=== PATIENT | female | born 1955 | race Hispanic/Latino ===

== ENCOUNTER → 2017-04-03 | Outpatient (CLI) | payer MEDICARE | LOC: M LRY 14:46 | DX: R50.9 Fever, unspecified (principal); R05 Cough | CPT/HCPCS: 71046 ==

== ENCOUNTER → 2017-04-03 | Outpatient (REF) | payer MEDICARE | LOC: M SFHCLERA 14:07 | DX: R50.9 Fever, unspecified (principal) ==

== ENCOUNTER → 2017-04-03 | Outpatient (CLI) | payer MEDICARE | LOC: M LRY 14:41 | DX: R05 Cough (principal); R50.9 Fever, unspecified ==

== ENCOUNTER → 2017-04-21 | Outpatient (REF) | payer MEDICARE, OTHER ==
[2017-04-21 11:50] LABS: BASO % 0.5 % (0.0-1.0); EOS # 0.2 10^3/uL (0.0-0.50); EOS % 3.1 % (0.0-3.0); HEMATOCRIT 41.5 % (36.0-47.0); HEMOGLOBIN 13.8 g/dl (12.0-16.0); IMMATURE GRANULOCYTE % 0.1 % (0-3.0); LYMPH # 2.7 10^3/uL (1.5-4.5); LYMPH % 33.8 % (24.0-44.0); MEAN CORPUSCULAR HEMOGLOBIN 28.6 pg (27.0-33.0); MEAN CORPUSCULAR HGB CONC 33.3 g/dl (32.0-36.5); MEAN CORPUSCULAR VOLUME 85.9 fl (80.0-96.0); MONO # 0.6 10^3/uL (0.0-0.8); MONO % 7.9 % (0.0-5.0); NEUTROPHILS # 4.3 10^3/uL (1.8-7.7); NEUTROPHILS % 54.6 % (36.0-66.0); PLATELET COUNT, AUTOMATED 248 10^3/uL (150-450); RED BLOOD COUNT 4.83 10^6/uL (4.00-5.40); RED CELL DISTRIBUTION WIDTH 12.1 % (11.5-14.5); WHITE BLOOD COUNT 7.8 10^3/uL (4.0-10.0)
[2017-04-21 12:30] LABS: ALBUMIN 3.8 GM/DL (3.2-5.2); ALBUMIN/GLOBULIN RATIO 1.15 (1.00-1.93); ALKALINE PHOSPHATASE 62 U/L (45-117); ALT/SGPT 42 U/L (12-78); ANION GAP 8 MEQ/L (8-16); AST/SGOT 21 U/L (7-37); BILIRUBIN,TOTAL 1.1 MG/DL (0.2-1.0); BLOOD UREA NITROGEN 11 MG/DL (7-18); CALCIUM LEVEL 9.6 MG/DL (8.8-10.2); CARBON DIOXIDE LEVEL 28 MEQ/L (21-32); CHLORIDE LEVEL 105 MEQ/L (98-107); CHOLESTEROL LEVEL 215 MG/DL (<200); CHOLESTEROL RISK RATIO 5.657 (<5); CREATININE FOR GFR 0.74 MG/DL (0.55-1.30); FREE T4 1.33 NG/DL (0.76-1.46); GLOMERULAR FILTRATION RATE > 60.0 (>45); GLUCOSE, FASTING 119 MG/DL (70-100); HDL CHOLESTEROL 38 MG/DL (>40); LDL CHOLESTEROL 109.6 MG/DL (<100); NON-HDL-C 177 MG/DL; POTASSIUM SERUM 4.2 MEQ/L (3.5-5.1); SODIUM LEVEL 141 MEQ/L (136-145); TOTAL PROTEIN 7.1 GM/DL (6.4-8.2); TRIGLYCERIDES LEVEL 337 MG/DL (<150)
[2017-04-21 12:44] LABS: LITHIUM LEVEL 0.31 MEQ/L (0.60-1.20)
[2017-04-21 12:50] LABS: HEP C VIRUS AB SCREEN MEDICARE 0.1 INDEX (<0.8); HIV 1&2 SCREEN CENTAUR NEGATIVE (NEGATIVE)
[2017-04-21 16:21] LABS: MALB URINE SIEMENS 12.7 MG/L; MAU/CREAT RATIO 4.9 MCG/MG (0.0-30.0)
== END ==
LOC: M SFHCPLAZ 08:45
DX: Z00.00 Encounter for general adult medical examination without abnormal findings (principal); I10 Essential (primary) hypertension; E03.9 Hypothyroidism, unspecified; Z11.4 Encounter for screening for human immunodeficiency virus [HIV]; Z79.899 Other long term (current) drug therapy; Z13.220 Encounter for screening for lipoid disorders; Z11.59 Encounter for screening for other viral diseases
CPT/HCPCS: 80178

== ENCOUNTER → 2017-04-29 | Outpatient (CLI) | payer MEDICARE, OTHER | LOC: M WHC 13:18 | DX: Z12.31 Encounter for screening mammogram for malignant neoplasm of breast (principal) | CPT/HCPCS: 77067 ==

== ENCOUNTER → 2017-05-11 | Outpatient (CLI) | payer MEDICARE, BC, OTHER ==
[2017-05-11 11:01] LABS: LITHIUM LEVEL 0.33 MEQ/L (0.60-1.20)
== END ==
LOC: M LAB 09:56
DX: F31.89 Other bipolar disorder (principal)
CPT/HCPCS: 80178

== ENCOUNTER 2017-05-20 08:51 | Day surgery (SDC) | payer MEDICARE ==
[2017-05-20] MEDS ORDERED: PROPOFOL 200 MG/20 ML VIAL As Ordered (10:11)
[2017-05-20] MEDS ORDERED: LIDOCAINE 2% INJ 100 MG/5 ML SDV (FOR ANES.) As Ordered (10:11)
[2017-05-20] MEDS ORDERED: NS 1,000 ML IV (10:30)
== END 2017-05-20 12:25 | disposition home or self-care (01) ==
LOC: M OPP 08:51
DX: Z12.11 Encounter for screening for malignant neoplasm of colon (principal); D12.0 Benign neoplasm of cecum; K57.30 Diverticulosis of large intestine without perforation or abscess without bleeding; K64.4 Residual hemorrhoidal skin tags; K64.8 Other hemorrhoids; I10 Essential (primary) hypertension; E78.5 Hyperlipidemia, unspecified; E03.9 Hypothyroidism, unspecified; K21.9 Gastro-esophageal reflux disease without esophagitis; R12 Heartburn; F31.9 Bipolar disorder, unspecified; J45.909 Unspecified asthma, uncomplicated; Z87.891 Personal history of nicotine dependence; Z79.899 Other long term (current) drug therapy
CPT/HCPCS: 45385

== ENCOUNTER → 2017-06-19 | Outpatient (REF) | payer MEDICARE, OTHER ==
[2017-06-19 18:55] LABS: ALBUMIN 3.9 GM/DL (3.2-5.2); ALBUMIN/GLOBULIN RATIO 1.22 (1.00-1.93); ALKALINE PHOSPHATASE 62 U/L (45-117); ALT/SGPT 32 U/L (12-78); ANION GAP 7 MEQ/L (8-16); AST/SGOT 17 U/L (7-37); BILIRUBIN,TOTAL 1.2 MG/DL (0.2-1.0); BLOOD UREA NITROGEN 18 MG/DL (7-18); CALCIUM LEVEL 9.6 MG/DL (8.8-10.2); CARBON DIOXIDE LEVEL 29 MEQ/L (21-32); CHLORIDE LEVEL 106 MEQ/L (98-107); CHOLESTEROL LEVEL 145 MG/DL (<200); CHOLESTEROL RISK RATIO 4.142 (<5); CREATININE FOR GFR 0.77 MG/DL (0.55-1.30); GLOMERULAR FILTRATION RATE > 60.0 (>45); GLUCOSE, FASTING 125 MG/DL (70-100); HDL CHOLESTEROL 35 MG/DL (>40); LDL CHOLESTEROL 46.8 MG/DL (<100); NON-HDL-C 110 MG/DL; POTASSIUM SERUM 4.4 MEQ/L (3.5-5.1); SODIUM LEVEL 142 MEQ/L (136-145); TOTAL PROTEIN 7.1 GM/DL (6.4-8.2); TRIGLYCERIDES LEVEL 316 MG/DL (<150)
[2017-06-19 18:59] LABS: ESTIMATED AVERAGE GLUCOSE 140 MG/DL (60-110); HEMOGLOBIN A1c 6.5 %
== END ==
LOC: M SFHCLERA 09:20
DX: E78.5 Hyperlipidemia, unspecified (principal); R73.01 Impaired fasting glucose
CPT/HCPCS: 80053

== ENCOUNTER 2017-09-20 11:01 | Emergency (ER) | payer MEDICARE ==
[2017-09-20] MEDS ORDERED: KETOROLAC TROMETHAMINE 10 MG TAB PO (14:00)
[2017-09-20] MEDS: KETOROLAC 60 MG/2 ML VIAL (J1885) IM (14:45)
== END 2017-09-20 15:24 | disposition home or self-care (01) ==
LOC: M ED 11:01
DX: M17.11 Unilateral primary osteoarthritis, right knee (principal); M51.36 Other intervertebral disc degeneration, lumbar region; M89.8X8 Other specified disorders of bone, other site; E66.9 Obesity, unspecified; F31.89 Other bipolar disorder; I10 Essential (primary) hypertension; Z98.890 Other specified postprocedural states; Z87.891 Personal history of nicotine dependence; Z79.890 Hormone replacement therapy; Z79.899 Other long term (current) drug therapy
CPT/HCPCS: J1885

== ENCOUNTER → 2017-09-20 | Outpatient (CLI) | payer MEDICARE ==
[2017-09-20 12:10] LABS: LITHIUM LEVEL 0.54 MEQ/L (0.60-1.20)
== END ==
LOC: M LAB 10:34
DX: F31.89 Other bipolar disorder (principal)

== ENCOUNTER → 2017-10-08 | Outpatient (CLI) | payer MEDICARE | LOC: M RAD 13:16 | DX: M25.561 Pain in right knee (principal) | CPT/HCPCS: 73721 ==

== ENCOUNTER → 2017-11-11 | Outpatient (REF) | payer MEDICARE ==
[2017-11-11 14:59] LABS: ALBUMIN 3.5 GM/DL (3.2-5.2); ALBUMIN/GLOBULIN RATIO 1.06 (1.00-1.93); ALKALINE PHOSPHATASE 69 U/L (45-117); ALT/SGPT 36 U/L (12-78); ANION GAP 9 MEQ/L (8-16); AST/SGOT 17 U/L (7-37); BLOOD UREA NITROGEN 7 MG/DL (7-18); CALCIUM LEVEL 9.4 MG/DL (8.8-10.2); CARBON DIOXIDE LEVEL 25 MEQ/L (21-32); CHLORIDE LEVEL 110 MEQ/L (98-107); FREE T4 1.16 NG/DL (0.76-1.46); GLOMERULAR FILTRATION RATE > 60.0 (>45); GLUCOSE, FASTING 108 MG/DL (70-100); POTASSIUM SERUM 4.2 MEQ/L (3.5-5.1); SODIUM LEVEL 144 MEQ/L (136-145); TOTAL PROTEIN 6.8 GM/DL (6.4-8.2)
[2017-11-11 15:10] LABS: ESTIMATED AVERAGE GLUCOSE 128 MG/DL (60-110); HEMOGLOBIN A1c 6.1 %
== END ==
LOC: M SFHCPLAZ 08:46
DX: E11.42 Type 2 diabetes mellitus with diabetic polyneuropathy (principal); E03.9 Hypothyroidism, unspecified
CPT/HCPCS: 84443

== ENCOUNTER → 2017-11-12 | Outpatient (CLI) | payer MEDICARE | LOC: M LRY 10:40 | DX: R06.2 Wheezing (principal) | CPT/HCPCS: 71046; 94640 ==

== ENCOUNTER → 2017-11-26 | Outpatient (CLI) | payer MEDICARE ==
[2017-11-26 14:04] LABS: LITHIUM LEVEL 0.41 MEQ/L (0.60-1.20)
== END ==
LOC: M WHC 11:36
DX: F31.89 Other bipolar disorder (principal)
CPT/HCPCS: 80178

== ENCOUNTER → 2017-12-06 | Outpatient (CLI) | payer MEDICARE | LOC: M WHC 13:26 | DX: Z13.820 Encounter for screening for osteoporosis (principal) | CPT/HCPCS: 77080 ==

== ENCOUNTER → 2018-02-14 | Outpatient (REF) | payer MEDICARE, MEDICAID ==
[~2018-02-14] MED LIST: ACET30TAB PO; ALBU17IN2 INH; CLON1TAB8 PO; LEVO25TA5 PO; LITH300C PO; METF500T13 PO; METO75TA PO; MONT10TA2 PO; RANI300T PO; ROSU5TAB4 PO; TEMA30CA PO; VALS320T3 PO; VENTAER IN
[2018-02-14 13:34] LABS: HEMOGLOBIN A1c 5.8 %
== END ==
LOC: M SFHCPLAZ 08:47
PROVIDERS: ATTEND Physician Assistant
DX: E11.42 Type 2 diabetes mellitus with diabetic polyneuropathy (principal)

== ENCOUNTER 2018-03-30 06:47 | Day surgery (SDC) | payer MEDICARE, MEDICAID ==
[~2018-03-30] VITALS: Ht 160 cm; Wt 105.2 kg
[~2018-03-30 06:47] MED LIST changes: +ACETAMINOPHEN 325 MG TAB PO PRN
[2018-03-30] MEDS ORDERED: TRIAMCINOLONE PRES FR 40 MG/ML 1ML(TRIESENCE)(OR EYE ONLY)(J3300 PER 1MG) As Ordered ONE (06:50)
[2018-03-30] MEDS ORDERED: POVIDONE-IODINE 5% OPHTH PREP SOL 30ML As Ordered ONE (06:50)
[2018-03-30] MEDS ORDERED: LIDOCAINE 1% SDV 5 ML VIAL As Ordered ONE (06:50)
[2018-03-30] MEDS ORDERED: MOXIFLOXACIN IN BSS 0.25MG/0.25ML INTRACAMERAL INJ (OR EYE ONLY)(J2280) As Ordered ONE (06:51)
[2018-03-30] MEDS ORDERED: HEALON DUET PRO(HEALON 10MG/ML 0.55ML & HEALON ENDOCOAT 30MG/ML 0.85ML) As Ordered ONE (06:51)
[2018-03-30] MEDS ORDERED: LIDOCAINE 3.5 % 1ML OPHTH TOPICAL GEL OU ONE (07:00)
[2018-03-30] MEDS ORDERED: TROPICAMIDE 1% OPHTH SOLN 2ML OS ONE (07:00)
[2018-03-30] MEDS ORDERED: BSS with VANC/TOB/EPI for EYE CASES IR ONE (07:00)
[2018-03-30] MEDS ORDERED: CYCLOPENTOLATE 2% OPHTH SOLN 2ML BTL OS ONE (07:00)
[2018-03-30] MEDS ORDERED: PHENYLEPHRINE 2.5% OPHTH SOL 2ML OS ONE (07:00)
[2018-03-30] MEDS ORDERED: OFLOXACIN 0.3 % (OCUFLOX) OPTH SOL 5ML OS ONE (07:00)
[2018-03-30] MEDS ORDERED: PHENYLEPHRINE HCL 10 % OPHTH. SOL 5ML OS PRN (07:00)
[2018-03-30] MEDS ORDERED: fentaNYL 100 MCG/2 ML INJECTION (J3010) As Ordered ONE (07:03)
[2018-03-30] MEDS ORDERED: MIDAZOLAM INJ 2 MG/2 ML VIAL (J2250) As Ordered ONE (07:03)
[2018-03-30] MEDS ORDERED: AcetaZOLAMIDE 500 MG ER CAP PO ONE (09:00)
[2018-03-30] MEDS ORDERED: TRIMETHOBENZAMIDE 300 MG CAP PO PRN (09:00)
[2018-03-30 09:25] VITALS: BP 137/63
== END 2018-03-30 09:50 | disposition home or self-care (01) ==
LOC: M SDC 06:47
PROVIDERS: ATTEND Ophthalmology
DX: H25.12 Age-related nuclear cataract, left eye (principal); I10 Essential (primary) hypertension; E03.9 Hypothyroidism, unspecified; J45.40 Moderate persistent asthma, uncomplicated; E11.42 Type 2 diabetes mellitus with diabetic polyneuropathy; K21.9 Gastro-esophageal reflux disease without esophagitis; F31.9 Bipolar disorder, unspecified; R06.83 Snoring; Z79.899 Other long term (current) drug therapy; Z79.82 Long term (current) use of aspirin; Z98.51 Tubal ligation status; Z78.0 Asymptomatic menopausal state
CPT/HCPCS: 66984; J2250; J2280; J3010; J3300; V2632

== ENCOUNTER → 2018-04-01 | Outpatient (REF) | payer MEDICARE, MEDICAID ==
[~2018-04-01] MED LIST changes: -ACETAMINOPHEN 325 MG TAB PO PRN; +AMLO5TAB6 PO; +LOPR1TAB6 PO
[2018-04-01 13:18] LABS: FOLATE 23.2 NG/ML (>5.4)
== END ==
LOC: M SFHCPLAZ 11:15
PROVIDERS: ATTEND Physician Assistant
DX: R20.0 Anesthesia of skin (principal)
CPT/HCPCS: 36415; 82607; 82746; G0463

== ENCOUNTER 2018-04-04 08:52 | Emergency (ER) | payer MEDICARE, MEDICAID ==
[~2018-04-04] VITALS: Ht 162.6 cm; Wt 103.6 kg
[~2018-04-04 08:52] MED LIST changes: -AMLO5TAB6 PO; -LOPR1TAB6 PO
[2018-04-04] MEDS ORDERED: LOPR1TAB6 PO (09:14)
[2018-04-04] MEDS ORDERED: AMLO5TAB6 PO (09:16)
[2018-04-04] MEDS ORDERED: MORPHINE 2 MG/ML 1ML SYRINGE (J2270) IV PRN (09:30)
[2018-04-04] MEDS ORDERED: ONDANSETRON 4MG/2ML VIAL (J2405) IV ONE (09:30)
--- NOTE | 2018-04-04 09:54 | REP ---
CT Head without contrast HISTORY: Infarction COMPARISON: None There is no intraparenchymal hemorrhage, acute infarct, mass or midline shift. The ventricular system is normal in appearance. The cortical sulci are dilated consistent with minimal volume loss. There is no extra cerebral collection. There is no fracture. The visualized sinuses are clear. IMPRESSION: Minimal volume loss. Electronically Signed by Virgilio Ruffin MD 04/04/2018 09:45 A
[2018-04-04 09:55] LABS: BASO # 0.1 10^3/uL (0.0-0.2); BASO % 0.5 % (0.0-1.0); EOS # 0.2 10^3/uL (0.0-0.50); EOS % 1.4 % (0.0-3.0); HEMATOCRIT 45.6 % (36.0-47.0); HEMOGLOBIN 15.4 g/dl (12.0-15.5); LYMPH # 3.6 10^3/uL (1.5-4.5); LYMPH % 25.7 % (24.0-44.0); MEAN CORPUSCULAR HEMOGLOBIN 29.1 pg (27.0-33.0); MEAN CORPUSCULAR HGB CONC 33.8 g/dl (32.0-36.5); MEAN CORPUSCULAR VOLUME 86.2 fl (80.0-96.0); MONO # 1.1 10^3/uL (0.0-0.8); MONO % 7.6 % (0.0-5.0); NEUTROPHILS # 9.2 10^3/uL (1.8-7.7); NEUTROPHILS % 64.6 % (36.0-66.0); PLATELET COUNT, AUTOMATED 337 10^3/uL (150-450); RED BLOOD COUNT 5.29 10^6/uL (4.00-5.40); WHITE BLOOD COUNT 14.2 10^3/uL (4.0-10.0)
--- NOTE | 2018-04-04 09:56 | REP ---
Chest x-ray: Single view. History: Chest pain. Comparison study: November 12, 2017. Findings: EKG monitoring electrodes overlie the chest. Lungs are well inflated and clear. Pleural angles are sharp. Heart size is normal. Pulmonary vasculature is not increased. No significant bony abnormality is seen. Impression: Negative AP chest x-ray. Electronically Signed by Ammon Roque MD 04/04/2018 09:47 A
[2018-04-04 10:13] LABS: PARTIAL THROMBOPLASTIN TIME 30.4 SECONDS (25.4-37.6)
[2018-04-04 10:16] LABS: D-DIMER QUANT 350.22 ng/ml (<500)
[2018-04-04 10:17] LABS: INR 0.91; PROTHROMBIN TIME 12.3 SECONDS (12.1-14.4)
[2018-04-04 10:27] LABS: ALBUMIN 4.2 GM/DL (3.2-5.2); ALT/SGPT 30 U/L (12-78); BILIRUBIN,DIRECT 0.2 MG/DL (0.0-0.2); BILIRUBIN,TOTAL 1.2 MG/DL (0.2-1.0); BLOOD UREA NITROGEN 14 MG/DL (7-18); CALCIUM LEVEL 10.9 MG/DL (8.8-10.2); CARBON DIOXIDE LEVEL 29 MEQ/L (21-32); CHLORIDE LEVEL 104 MEQ/L (98-107); CPK CREATINE PHOSPHOKINASE 52 U/L (26-192); CREATININE FOR GFR 0.77 MG/DL (0.55-1.30); FREE T4 1.37 NG/DL (0.76-1.46); GLOMERULAR FILTRATION RATE > 60.0 (>45); GLUCOSE, FASTING 74 MG/DL (70-100); LIPASE 191 U/L (73-393); LITHIUM LEVEL 0.58 MEQ/L (0.60-1.20); MB/CK RELATIVE INDEX 2.12 (< OR =4); NT-PRO BNP 113 PG/ML (<125); POTASSIUM SERUM 4.4 MEQ/L (3.5-5.1); SODIUM LEVEL 140 MEQ/L (136-145); TOTAL PROTEIN 7.7 GM/DL (6.4-8.2); TROPONIN I < 0.02 NG/ML (< 0.10)
[2018-04-04] MEDS ORDERED: ISOVUE-370 76% 100ML VIAL (Q9967) As Ordered ONE (10:44)
--- NOTE | 2018-04-04 12:03 | REP ---
CT pulmonary angiogram: With IV contrast. History: Chest pain. Comparison studies: Comparison is made with today's chest x-ray. Contrast dose: 75 mL of Isovue [address] technique: Helical scanning is acquired and overlapping 1.5 mm and contiguous 3 mm axial images are reformatted. In addition, maximum intensity projection and multiplanar re-formation images are generated in sagittal and coronal imaging projections. CT pulmonary angiographic findings: There is good opacification of the pulmonary arterial tree. There is no evidence of filling defect or vessel cutoff in the pulmonary arterial tree. No evidence of pulmonary embolus. Thoracic aorta shows no evidence of aneurysm or dissection. No pleural or pericardial effusion is noted. No hilar or mediastinal mass or adenopathy is seen. Normal adrenal glands are noted. There is a cyst in the upper pole of the left kidney seen at the bottom edge of the imaging field of view. This measures at least 4.4 cm in diameter. It is incompletely seen. There is an accessory splenule. On lung window settings, there is a 8 mm noncalcified pulmonary nodule visible in the left lower lobe on page 44 of 87 in series 402 of today's study. There are two tiny 2-3 mm nodules in the right upper lobe on pages 23 and 28. No other pulmonary nodule is seen. There is a small area of linear discoid atelectasis in the lingula. Impression: No CT evidence of pulmonary embolus. There is an 8 mm noncalcified left lower lobe pulmonary nodule which merits further evaluation. Recommend 4 to [address] study. There is also some linear atelectasis or fibrosis in the lingula. A left renal cyst is partially seen. Electronically Signed by Ammon Roque MD 04/04/2018 01:55 P
[2018-04-04 12:30] VITALS: BP 146/70
--- NOTE | 2018-04-05 09:22 | ED PDOC ---
Post-Departure Follow-Up darek calderón faxed formal report of cta for fu Carina Moser MD Apr 05, 2018 09:22
--- NOTE | 2018-04-06 08:38 | ECGEPIP ---
Stationary ECG Study [facility] - ED Test Date: 2018-04-04 Pat Name: JERRELL WEBSTER Department: Room: - Gender: F [employer]: brinda : 1955 Requested By: Carina Vigil Order Number: [id number] Reading MD: Kiley Valdes Measurements Intervals [place] Rate: 76 P: 56 OR: 194 QRS: 24 QRSD: 103 T: 42 QT: 375 QTc: 424 Interpretive Statements SINUS RHYTHM LOW VOLTAGE LIMB NO PRIOR FOR COMPARISON Electronically Signed On 04-06-2018 8:37:47 EST by Kiley Valdes
== END 2018-04-04 12:38 | disposition home or self-care (01) ==
LOC: M ED 08:52
DX: R07.89 Other chest pain (principal); R51 Headache; R11.0 Nausea; I10 Essential (primary) hypertension; R06.02 Shortness of breath; E11.9 Type 2 diabetes mellitus without complications; E78.5 Hyperlipidemia, unspecified; J44.9 Chronic obstructive pulmonary disease, unspecified; E07.9 Disorder of thyroid, unspecified; Z79.899 Other long term (current) drug therapy; Z79.84 Long term (current) use of oral hypoglycemic drugs
CPT/HCPCS: 70450; 71045; 71275; 80048; 80076; 80178; 82550; 82553; 83690; 83880; 84439; 84443; 84484; 85025; 85379; 85610; 85730; 86850; 86900; 86901; 93005; 93041; 94760; 96374; 96375; 99285; J2270; J2405; Q9967

== ENCOUNTER → 2018-05-12 | Outpatient (REF) | payer MEDICARE, MEDICAID ==
[~2018-05-12] MED LIST changes: +AMLO5TAB6 PO; +BYST10TA2 PO; +LOPR1TAB6 PO; +PRED1SOL3 OD
[2018-05-12 12:24] LABS: HEMATOCRIT 39.9 % (36.0-47.0); MEAN CORPUSCULAR HEMOGLOBIN 28.7 pg (27.0-33.0); MEAN CORPUSCULAR HGB CONC 32.6 g/dl (32.0-36.5); MEAN CORPUSCULAR VOLUME 88.1 fl (80.0-96.0); PLATELET COUNT, AUTOMATED 255 10^3/uL (150-450); RED BLOOD COUNT 4.53 10^6/uL (4.00-5.40); WHITE BLOOD COUNT 9.3 10^3/uL (4.0-10.0)
[2018-05-12 12:54] LABS: FREE T4 1.32 NG/DL (0.76-1.46); THYROID STIMULATING HORMONE 1.04 uIU/ML (0.358-3.740)
[2018-05-12 13:50] LABS: HEMOGLOBIN A1c 5.6 %
== END ==
LOC: M SFHCPLAZ 09:57
PROVIDERS: ATTEND Physician Assistant
DX: R07.9 Chest pain, unspecified (principal); E03.9 Hypothyroidism, unspecified; E11.42 Type 2 diabetes mellitus with diabetic polyneuropathy

== ENCOUNTER 2018-05-15 11:07 | Emergency (ER) | payer MEDICARE, MEDICAID ==
[~2018-05-15] VITALS: Ht 162.6 cm; Wt 104.5 kg
[2018-05-15 11:07] VITALS: BP 185/77
[~2018-05-15 11:07] MED LIST changes: -BYST10TA2 PO; -PRED1SOL3 OD
[2018-05-15] MEDS ORDERED: BYST10TA2 PO (11:13)
[2018-05-15] MEDS ORDERED: TETRACAINE 0.5% OPHTH SOLN 4ML OU ONE (12:00)
[2018-05-15] MEDS ORDERED: FLUORESCEIN OPHTH 1 MG STRIP OU ONE (12:00)
[2018-05-15] MEDS ORDERED: PRED1SOL3 OD (13:21)
== END 2018-05-15 13:27 | disposition home or self-care (01) ==
LOC: M ED 11:07
DX: H20.011 Primary iridocyclitis, right eye (principal); E11.9 Type 2 diabetes mellitus without complications; I10 Essential (primary) hypertension; Z79.899 Other long term (current) drug therapy

== ENCOUNTER → 2018-05-19 | Outpatient (CLI) | payer MEDICARE, MEDICAID ==
[~2018-05-19] MED LIST changes: +BYST10TA2 PO; +PRED1SOL3 OD
--- NOTE | 2018-05-25 14:23 | SLEEPHOME ---
DATE OF PROCEDURE: 05/19/2018 ORDERING PROVIDER: Dr. Arriola Diagnostic home sleep testing was performed due to concern for the obstructive sleep apnea syndrome. For testing, a nocturnal T3 respiratory monitoring device was used. Continuous record was made of pulse, oxygen saturation, airflow, chest and abdominal strain. 10 hours and 59 minutes of data were reviewed. There were 7 hours and 45 minutes marked as time in bed. During the interval marked time in bed, there were 46 respiratory events identified of 10 seconds in duration or greater for respiratory event index of 5.9. The events were primarily obstructive. Baseline pulse rate was 60 beats per minute. Pulse rate ranged 49 to 92. Baseline saturation 89%. Lowest oxygen saturation 82%. Testing was performed in both the supine and nonsupine positions. IMPRESSION: Abnormal home sleep testing with repetitive respiratory events and oxygen desaturations to 82% with a respiratory event index of 5.9 is consistent with the obstructive sleep apnea syndrome. RECOMMENDATIONS: The patient should be encouraged to undergo formal sleep evaluation and in laboratory pressure titration.
== END ==
LOC: M SLEEP HO 11:07
PROVIDERS: ATTEND Internal Medicine Cardiovascular Disease
DX: R06.83 Snoring (principal)

== ENCOUNTER → 2018-05-31 | Outpatient (REF) | payer MEDICARE, MEDICAID ==
[~2018-05-31] MED LIST changes: +ACET-716 PO; -ACET30TAB PO
== END ==
LOC: M LABDRAW1 10:07
PROVIDERS: ATTEND Nurse Practitioner Psychiatric/Mental Health
DX: F31.89 Other bipolar disorder (principal)

== ENCOUNTER → 2018-06-03 | Outpatient (REF) ==
[2018-06-03 12:05] LABS: RUBELLA IgG QUALITATIVE IMMUNE (IMMUNE)
== END ==
LOC: M LAB 10:34
PROVIDERS: ATTEND Nurse Practitioner Adult Health
DX: Z02.89 Encounter for other administrative examinations (principal)

== ENCOUNTER → 2018-06-07 | Outpatient (REF) | payer MEDICARE, MEDICAID ==
[2018-06-07 13:50] LABS: BASO # 0.1 10^3/uL (0.0-0.2); BASO % 0.6 % (0.0-1.0); EOS # 0.3 10^3/uL (0.0-0.50); EOS % 2.8 % (0.0-3.0); HEMATOCRIT 42.1 % (36.0-47.0); HEMOGLOBIN 13.4 g/dl (12.0-15.5); LYMPH # 3.1 10^3/uL (1.5-4.5); LYMPH % 28.5 % (24.0-44.0); MEAN CORPUSCULAR HEMOGLOBIN 28.6 pg (27.0-33.0); MEAN CORPUSCULAR HGB CONC 31.8 g/dl (32.0-36.5); MONO # 0.7 10^3/uL (0.0-0.8); MONO % 6.6 % (0.0-5.0); NEUTROPHILS # 6.7 10^3/uL (1.8-7.7); PLATELET COUNT, AUTOMATED 282 10^3/uL (150-450); RED BLOOD COUNT 4.68 10^6/uL (4.00-5.40); WHITE BLOOD COUNT 10.9 10^3/uL (4.0-10.0)
[2018-06-07 14:07] LABS: ALBUMIN 3.7 GM/DL (3.2-5.2); ALT/SGPT 20 U/L (12-78); BILIRUBIN,TOTAL 0.9 MG/DL (0.2-1.0); BLOOD UREA NITROGEN 14 MG/DL (7-18); CALCIUM LEVEL 10.6 MG/DL (8.8-10.2); CARBON DIOXIDE LEVEL 29 MEQ/L (21-32); CHLORIDE LEVEL 106 MEQ/L (98-107); CREATININE FOR GFR 0.76 MG/DL (0.55-1.30); FERRITIN 97 NG/ML (8-252); GLOMERULAR FILTRATION RATE > 60.0 (>45); GLUCOSE, FASTING 88 MG/DL (70-100); POTASSIUM SERUM 4.7 MEQ/L (3.5-5.1); RHEUMATOID FACTOR QUANT 34.5 IU/ML (<15.0); SODIUM LEVEL 139 MEQ/L (136-145); THYROID STIMULATING HORMONE 0.901 uIU/ML (0.358-3.740); TOTAL 25(OH) VITAMIN D 25.8 NG/ML (30.0-100.0); TOTAL PROTEIN 6.7 GM/DL (6.4-8.2)
[2018-06-07 14:17] LABS: ERYTHROCYTE SEDIMENTATION RATE 10 mm/hr (0-30)
[2018-06-08 14:26] LABS: ANTINUCLEAR ANTIBODIES DIRECT Negative (Negative)
== END ==
LOC: M LABNEURO 12:55
PROVIDERS: ATTEND Psychiatry & Neurology Neurology
DX: R51 Headache (principal); G25.81 Restless legs syndrome

== ENCOUNTER 2018-08-24 11:33 | Emergency (ER) | payer MEDICARE, MEDICAID ==
[~2018-08-24] VITALS: Ht 162.6 cm; Wt 106.2 kg
[~2018-08-24 11:33] MED LIST changes: -ROSU5TAB4 PO; +ROSU5TAB5 PO
[2018-08-24] MEDS ORDERED: SYNT75TA PO (12:36)
[2018-08-24] MEDS ORDERED: METF10004 PO (12:36)
[2018-08-24 13:29] LABS: APPEARANCE, URINE CLEAR (CLEAR); BACTERIA, URINE AUTO 1+ (NEGATIVE); BILIRUBIN, URINE AUTO NEGATIVE (NEGATIVE); BLOOD, URINE BLOOD NEGATIVE (NEGATIVE); COLOR, URINE STRAW (YELLOW); GLUCOSE, URINE (UA) AUTO NEGATIVE (NEGATIVE); KETONE, URINE AUTO NEGATIVE (NEGATIVE); LEUKOCYTE ESTERASE, URINE AUTO NEGATIVE (NEGATIVE); NITRITE, URINE AUTO NEGATIVE (NEGATIVE); PROTEIN, URINE AUTO NEGATIVE (NEGATIVE); RBC, URINE AUTO 1 /HPF (0-3); SPECIFIC GRAVITY URINE AUTO 1.004 (1.002-1.035); SQUAMOUS EPITHELIAL CELL UR AU 2 /HPF (0-6); UROBILINOGEN, URINE AUTO 0.2 mg/dL (0.0-2.0); WBC, URINE AUTO 0 /HPF (0-3)
--- NOTE | 2018-08-24 13:43 | REP ---
CT LUMBAR SPINE WITHOUT CONTRAST: HISTORY: Injury. Vertebral tenderness. FINDINGS: Lumbar vertebral body heights are preserved. No fracture or collapse is seen. There is bilateral L5 spondylolysis without spondylolisthesis. This is not an acute traumatic finding. Pedicles and posterior elements are otherwise intact. There is mild discogenic spurring anteriorly at the L2-3. L3-4 and L4-5 disc levels. No lumbosacral spine fracture is appreciated. The upper sacrum appears intact. Paravertebral soft tissues are unremarkable. Vascular calcification is noted. No evidence of paraspinal or intraspinal hematoma is seen. No evidence of significant disc protrusion is appreciated. IMPRESSION: Bilateral L5 spondylolysis without spondylolisthesis. This is a chronic finding. No acute bony abnormality is appreciated. There are minimal degenerative disc changes. Electronically Signed by Ammon Roque MD 08/24/2018 04:34 P
[2018-08-24] MEDS ORDERED: FUROSEMIDE 20 MG TAB PO ONE (14:30)
[2018-08-24] MEDS ORDERED: FURO20TA2 PO (14:37)
[2018-08-24] MEDS ORDERED: K-TA10TA2 PO (14:37)
[2018-08-24 14:40] VITALS: BP 178/82
== END 2018-08-24 14:59 | disposition home or self-care (01) ==
LOC: M ED 11:33
DX: M54.5 Low back pain (principal); R60.9 Edema, unspecified; M43.06 Spondylolysis, lumbar region; I10 Essential (primary) hypertension; E78.5 Hyperlipidemia, unspecified; Z79.84 Long term (current) use of oral hypoglycemic drugs; Z79.899 Other long term (current) drug therapy

== ENCOUNTER → 2018-08-25 | Outpatient (REF) | payer MEDICARE, MEDICAID ==
[~2018-08-25] MED LIST changes: +FURO20TA2 PO; +K-TA10TA2 PO; +METF10004 PO; +ROSU5TAB4 PO; -ROSU5TAB5 PO; +SYNT75TA PO
[2018-08-25 13:08] LABS: CHOLESTEROL RISK RATIO 3.4 (<5)
[2018-08-25 13:24] LABS: HEMOGLOBIN A1c 5.7 %
[2018-08-25 13:30] LABS: CREATININE, URINE 44.1 MG/DL; MALB URINE SIEMENS 5.1 MG/L; MAU/CREAT RATIO 11.5 MCG/MG (0.0-30.0)
== END ==
LOC: M SFHCPLAZ 09:23
PROVIDERS: ATTEND Family Medicine
DX: E11.42 Type 2 diabetes mellitus with diabetic polyneuropathy (principal); E78.5 Hyperlipidemia, unspecified

== ENCOUNTER → 2018-08-29 | Outpatient (REF) | payer MEDICARE, MEDICAID ==
[2018-08-29 12:52] LABS: BLOOD UREA NITROGEN 16 MG/DL (7-18); CALCIUM LEVEL 9.7 MG/DL (8.8-10.2); CARBON DIOXIDE LEVEL 29 MEQ/L (21-32); CHLORIDE LEVEL 107 MEQ/L (98-107); CREATININE FOR GFR 0.73 MG/DL (0.55-1.30); GLOMERULAR FILTRATION RATE > 60.0 (>45); GLUCOSE, FASTING 103 MG/DL (70-100); NT-PRO BNP 123 PG/ML (<125); POTASSIUM SERUM 4.2 MEQ/L (3.5-5.1); SODIUM LEVEL 141 MEQ/L (136-145)
== END ==
LOC: M SFHCPLAZ 09:32
PROVIDERS: ATTEND Family Medicine
DX: R60.0 Localized edema (principal)

== ENCOUNTER → 2018-09-20 | Outpatient (REF) | payer MEDICARE, MEDICAID ==
[~2018-09-20] MED LIST changes: -ROSU5TAB4 PO; +ROSU5TAB5 PO
== END ==
LOC: M LABDRAW1 10:36
PROVIDERS: ATTEND Nurse Practitioner Psychiatric/Mental Health
DX: F31.89 Other bipolar disorder (principal); Z79.899 Other long term (current) drug therapy

== ENCOUNTER → 2018-10-03 | Outpatient (CLI) | payer MEDICARE, MEDICAID ==
--- NOTE | 2018-10-04 08:41 | REP ---
Clinical: Follow-up pulmonary nodule. Comparison: 04/24/2018. Technique: Axial noncontrast images from the thoracic inlet to the upper abdomen with coronal and sagittal re-formations. Findings: The previously identified 8 mm noncalcified nodule in the left lower lobe remains stable (image 51). A 4 mm noncalcified nodule deeper in the left lower lobe (image 62) and 3 mm nodule (image 71) may have been obscured by atelectasis on prior examination. No further acute consolidation, significant nodule or mass lesion. No effusion. No pneumothorax. Tracheobronchial tree is patent. No significant adenopathy. The mediastinum demonstrates relatively normal thoracic aorta, pulmonary vasculature and heart/pericardium. Limited upper abdomen demonstrates normal appearance to the visualized bilateral adrenal glands, evidence of prior cholecystectomy, and incompletely identified left renal cyst measuring up to approximately 4.6 cm. Impression: 1. Previously identified 8 mm nodule in the left lower lobe remains stable. Two smaller noncalcified nodules in the left lower lobe are identified on current examination and in retrospect were likely obscured by atelectasis. 9 - 12 month follow-up examination may be warranted for further investigation. 2. No further acute mediastinal or pleuroparenchymal process. 3. Left renal cyst incompletely evaluated. Electronically Signed by Darius Cr MD 10/04/2018 08:32 A
== END ==
LOC: M RAD 10:43
PROVIDERS: ATTEND Family Medicine
DX: R91.8 Other nonspecific abnormal finding of lung field (principal); N28.1 Cyst of kidney, acquired

== ENCOUNTER → 2018-10-18 | Outpatient (CLI) | payer MEDICARE, MEDICAID ==
[~2018-10-18] MED LIST changes: -ALBU17IN2 INH; +PROV108A INH
[2018-10-18 12:15] LABS: BLOOD UREA NITROGEN 12 MG/DL (7-18); CALCIUM LEVEL 9.7 MG/DL (8.8-10.2); CARBON DIOXIDE LEVEL 28 MEQ/L (21-32); CHLORIDE LEVEL 109 MEQ/L (98-107); CREATININE FOR GFR 0.73 MG/DL (0.55-1.30); GLOMERULAR FILTRATION RATE > 60.0 (>45); GLUCOSE, FASTING 103 MG/DL (70-100); POTASSIUM SERUM 4.2 MEQ/L (3.5-5.1); SODIUM LEVEL 141 MEQ/L (136-145); TROPONIN I < 0.02 NG/ML (< 0.10)
[2018-10-18 12:19] LABS: CREATININE, URINE 42.2 MG/DL; MALB URINE SIEMENS < 5.0 MG/L; MAU/CREAT RATIO 11.8 MCG/MG (0.0-30.0)
[2018-10-18 12:19] LABS: CORTISOL AM 6.8 UG/DL (4.3-22.4)
[2018-10-22 00:06] LABS: CREATININE,RANDOM URINE 45.9 mg/dL (Not Estab.); URINE METANEPHR/CREAT RATIO 0.4 (0.0-1.0)
== END ==
LOC: M LAB 10:54
PROVIDERS: ATTEND Family Medicine
DX: I16.0 Hypertensive urgency (principal)
CPT/HCPCS: 36415; 80048; 82043; 82533; 83835; 84484; G0463

== ENCOUNTER → 2018-10-18 | Outpatient (REF) | payer MEDICARE, MEDICAID ==
[~2018-10-18] MED LIST changes: +ALBU17IN2 INH; -PROV108A INH
== END ==
LOC: M SFHCPLAZ 10:16
PROVIDERS: ATTEND Family Medicine
DX: I16.0 Hypertensive urgency (principal); Z53.8 Procedure and treatment not carried out for other reasons

== ENCOUNTER → 2018-10-21 | Outpatient (CLI) | payer MEDICARE, MEDICAID ==
[~2018-10-21] MED LIST changes: -ALBU17IN2 INH; +ONDA4TAB6 PO; +PROV108A INH
--- NOTE | 2018-10-21 09:13 | REP ---
Renal vascular ultrasound: Right Kidney: Extraparenchymal renal artery. Peak renal artery flow velocity the 132 cm/ sec Peak aortic velocity: 120 cm/sec Renal/aortic ratio: 1.1 Intraparenchymal renal arteries. Resistive index: upper pole 0.75 mid pole at 0.78 lower pole 0.77 Acceleration time: upper pole 0.036 mid pole 0.046 lower pole 0.042 Left kidney: Extraparenchymal renal artery: Peak renal artery flow velocity: 136 cm/sec. Peak aortic velocity: 120 cm/sec Renal/aortic ratio: 1.13 Intraparenchymal renal arteries: Resistive index: Upper pole 0.77 mid pole 0.7 a lower pole 0.74 Acceleration time: Upper pole 0.05 mid pole 0.054 lower pole 0.056 Impression: No evidence of renal artery stenosis by Doppler ultrasound. Bilateral renal ultrasound: Studies performed for hypertension and difficulty urinating. The kidneys are normal size. The right kidney measures 12.1 x 5.5 record 0.6 cm per Left kidney measures 12.0 by 6 x 1 x 5.7 cm. Renal cortical echogenicity is normal bilaterally. There is no hydronephrosis, calculus or solid mass on the right on the left. There are three right ovarian simple cysts as follows: Upper pole 6 mm. Mid pole 12 mm. Mid pole 4 mm. Left kidney: Upper pole 5.9 cm. Upper pole 9 mm. Lower pole 6 mm. Bladder: With color Doppler assessment there are bilateral ureteral jets into the bladder. Impression: There are bilateral renal cortical simple cysts. There are no solid renal masses. There are no calcifications. There is no hydronephrosis. The kidneys are normal size. Electronically Signed by Aroldo Dwyer MD 10/21/2018 09:04 A
== END ==
LOC: M RAD 07:24
PROVIDERS: ATTEND Family Medicine
DX: I16.0 Hypertensive urgency (principal)

== ENCOUNTER 2018-10-26 11:17 | Outpatient (RCR) | payer MEDICARE, MEDICAID ==
[~2018-10-26 11:17] MED LIST changes: +ALBU17IN2 INH; -ONDA4TAB6 PO; -PROV108A INH
== END 2018-10-29 ==
LOC: M PT 11:17
PROVIDERS: ATTEND Family Medicine
DX: Z51.89 Encounter for other specified aftercare (principal); M54.2 Cervicalgia

== ENCOUNTER → 2018-10-27 | Outpatient (REF) | payer MEDICARE, MEDICAID ==
[~2018-10-27] MED LIST changes: -ALBU17IN2 INH; +PROV108A INH
[2018-10-27 17:26] LABS: BLOOD UREA NITROGEN 14 MG/DL (7-18); CALCIUM LEVEL 9.4 MG/DL (8.8-10.2); CARBON DIOXIDE LEVEL 30 MEQ/L (21-32); CHLORIDE LEVEL 110 MEQ/L (98-107); CREATININE FOR GFR 0.72 MG/DL (0.55-1.30); GLOMERULAR FILTRATION RATE > 60.0 (>45); GLUCOSE, FASTING 107 MG/DL (70-100); POTASSIUM SERUM 4.5 MEQ/L (3.5-5.1); SODIUM LEVEL 144 MEQ/L (136-145)
== END ==
LOC: M SFHCPLAZ 15:30
PROVIDERS: ATTEND Family Medicine
DX: I10 Essential (primary) hypertension (principal)
CPT/HCPCS: 36415; 80048; G0463

== ENCOUNTER 2018-11-25 15:08 | Emergency (ER) | payer MEDICARE, MEDICAID ==
[~2018-11-25] VITALS: Ht 162.6 cm; Wt 107.3 kg
[2018-11-25 15:57] LABS: BASO # 0.1 10^3/uL (0.0-0.2); BASO % 0.5 % (0.0-1.0); EOS # 0.4 10^3/uL (0.0-0.5); EOS % 3.7 % (0.0-3.0); HEMATOCRIT 38.9 % (36.0-47.0); HEMOGLOBIN 12.8 g/dl (12.0-15.5); LYMPH # 2.3 10^3/uL (1.5-5.0); LYMPH % 23.6 % (24.0-44.0); MEAN CORPUSCULAR HEMOGLOBIN 29.8 pg (27.0-33.0); MEAN CORPUSCULAR HGB CONC 32.9 g/dl (32.0-36.5); MEAN CORPUSCULAR VOLUME 90.5 fl (80.0-96.0); MONO # 0.9 10^3/uL (0.0-0.8); MONO % 8.8 % (0.0-5.0); NEUTROPHILS # 6.2 10^3/uL (1.5-8.5); PLATELET COUNT, AUTOMATED 246 10^3/uL (150-450); WHITE BLOOD COUNT 9.9 10^3/uL (4.0-10.0)
[2018-11-25 16:20] LABS: ALBUMIN 3.6 GM/DL (3.2-5.2); BILIRUBIN,DIRECT 0.2 MG/DL (0.0-0.2); BILIRUBIN,TOTAL 0.9 MG/DL (0.2-1.0); CALCIUM LEVEL 9.6 MG/DL (8.8-10.2); CREATININE FOR GFR 1.04 MG/DL (0.55-1.30); GLOMERULAR FILTRATION RATE 56.8 (>45); POTASSIUM SERUM 4.4 MEQ/L (3.5-5.1); TOTAL PROTEIN 6.8 GM/DL (6.4-8.2)
[2018-11-25] MEDS ORDERED: ISOVUE-370 76% 100ML VIAL (Q9967) As Ordered ONE (17:42)
[2018-11-25] MEDS ORDERED: NS 1,000 ML IV ONE (17:45)
[2018-11-25] MEDS ORDERED: ONDANSETRON 4MG/2ML VIAL (J2405) IV ONE (17:45)
--- NOTE | 2018-11-25 18:56 | REPVR ---
PROCEDURE INFORMATION: Exam: CT Abdomen and Pelvis With Contrast Exam date and time: 11/25/2018 5:35 PM Clinical history: 63 years old, female; Abdominal pain; Additional info: Ruq pain/diarrhea TECHNIQUE: Imaging protocol: Computed tomography of the abdomen and pelvis with intravenous contrast. Radiation optimization: All CT scans at this facility use at least one of these dose optimization techniques: automated exposure control; mA and/or kV adjustment per patient size (includes targeted exams where dose is matched to clinical indication); or iterative reconstruction. Contrast material: ISOVUE 370; Contrast volume: 100 ml; Contrast route: IV; COMPARISON: Portions of RENAL US 10/21/2018 7:30 AM FINDINGS: Pleural space: Small right pleural effusion with adjacent atelectasis and/or infiltrate. Liver: Diffusely hypodense liver consistent with hepatic steatosis. Gallbladder and bile ducts: Status post cholecystectomy. Pancreas: Normal. No ductal dilation. Spleen: Normal. No splenomegaly. Adrenals: Normal. No mass. Kidneys and ureters: Left renal 5.0 cm cyst. Right renal 0.8 cm cyst. Right renal scarring. No hydronephrosis. No mass. Stomach and bowel: Colonic diverticulosis without evidence of diverticulitis. There is thickening of the quinonez of loops of ileum in the left upper abdomen. No obstruction. Appendix: No evidence of appendicitis. Intraperitoneal space: No free air. No significant fluid collection. Vasculature: No abdominal aortic aneurysm. Lymph nodes: No enlarged lymph nodes. Bladder: Unremarkable. Reproductive: Lower uterine segment mass measuring approximately 5.4 cm in diameter. Bones/joints: Chronic appearing bilateral L5 spondylosis. No acute fracture or dislocation. Degenerative changes in the spine. Soft tissues: Unremarkable. IMPRESSION: 1. Findings consistent with infectious or inflammatory ileitis. 2. Small right pleural effusion with adjacent atelectasis and/or infiltrate. 3. Indeterminate lower uterine segment mass. Consider nonemergent ultrasound if not worked up in the past. 4. Nonacute/incidental findings above. COMMENT: Consistent with the [employer]'s Incidental Findings Committee Report (J Am Manav Radiol 2010): Unless the patient's specific circumstances suggest otherwise, any liver lesion 0.5 cm or less, any cystic kidney lesion less than 1.0 cm, and/or any adrenal lesion 1.0 cm or less not otherwise characterized in this report as possessing suspicious or indeterminate imaging features is/are highly likely to be benign and do not require follow-up imaging or biopsy. Electronically signed by: Jeff Wallace On 11/25/2018 18:56:20 PM
[2018-11-25] MEDS ORDERED: ONDA4TAB6 PO (19:36)
[2018-11-25 19:53] VITALS: BP 169/85
--- NOTE | 2018-11-29 12:50 | ED PDOC ---
Post-Departure Follow-Up dr amber hall faxed formal report of ct abd/p for fu Carina Moser MD Nov 29, 2018 12:50
== END 2018-11-25 19:55 | disposition home or self-care (01) ==
LOC: M ED 15:08
DX: K52.9 Noninfective gastroenteritis and colitis, unspecified (principal); N85.8 Other specified noninflammatory disorders of uterus; E11.9 Type 2 diabetes mellitus without complications; I10 Essential (primary) hypertension; J45.909 Unspecified asthma, uncomplicated; J44.9 Chronic obstructive pulmonary disease, unspecified; E78.5 Hyperlipidemia, unspecified; E03.9 Hypothyroidism, unspecified; K21.9 Gastro-esophageal reflux disease without esophagitis; I67.1 Cerebral aneurysm, nonruptured; G47.33 Obstructive sleep apnea (adult) (pediatric); Z79.899 Other long term (current) drug therapy; Z79.84 Long term (current) use of oral hypoglycemic drugs; Z79.890 Hormone replacement therapy
CPT/HCPCS: 74177; 80048; 80076; 81001; 83690; 85025; 96374; 99284; J2405; Q9967

== ENCOUNTER → 2018-11-29 | Outpatient (REF) | payer MEDICARE, MEDICAID ==
[~2018-11-29] MED LIST changes: +ONDA4TAB6 PO
== END ==
LOC: M LAB REF 12:02
PROVIDERS: ATTEND Emergency Medicine
DX: K52.9 Noninfective gastroenteritis and colitis, unspecified (principal)

== ENCOUNTER → 2018-12-07 | Outpatient (CLI) | payer MEDICARE, MEDICAID ==
--- NOTE | 2018-12-07 16:43 | REP ---
Pelvic ultrasound with endovaginal and Doppler ultrasound assessment for palpable lump: The uterus is anteverted and normal size measuring 7.3 x 3.6 x 3.9 cm. The endometrium is not thickened measuring 5.1 mm. There is an exophytic heterogeneous soft tissue mass arising from the lower uterine segment on the the right measuring 5.0 x 4.2 x 4.5 cm. With Doppler assessment there is low resistance flow within this mass. This may represent an exophytic fibroid, however the low-resistance flow suggests that may be a neoplasm. There is a fibroid in the uterine fundus anteriorly measuring 1.3 x 1.2 x 0.9 cm. Right ovary: The right ovary is normal size measuring 2.1 x 1.7 x 1.5 cm. There is no dominant mass or cyst. Venous flow is identified with Doppler assessment. Visualization is difficult because of bowel gas. Left ovary: Left ovary could not be visualized. Impression: There is a nonspecific, mass or right lateral margin of the lower uterine segment and cervix as described. This is nonspecific and could represent an exophytic fibroid or neoplasm. With Doppler assessment there is low resistance flow. There is a fibroid in the uterine one this anteriorly as described. The right ovary is unremarkable. The left ovary could not be visualized. Electronically Signed by Aroldo Dwyer MD 12/07/2018 04:34 P
== END ==
LOC: M RAD 15:14
PROVIDERS: ATTEND Family Medicine
DX: N85.8 Other specified noninflammatory disorders of uterus (principal); D25.9 Leiomyoma of uterus, unspecified

== ENCOUNTER → 2019-03-22 | Outpatient (REF) | payer MEDICARE, MEDICAID ==
[~2019-03-22] MED LIST changes: -MONT10TA2 PO; +MONT10TA4 PO
[2019-03-22 12:19] LABS: CALCIUM LEVEL 10.6 MG/DL (8.8-10.2); CHOLESTEROL RISK RATIO 3.104 (<5); CREATININE FOR GFR 1.04 MG/DL (0.55-1.30); FREE T4 1.19 NG/DL (0.76-1.46); GLOMERULAR FILTRATION RATE 56.8 (>45); POTASSIUM SERUM 4.7 MEQ/L (3.5-5.1); THYROID STIMULATING HORMONE 0.59 uIU/ML (0.358-3.740)
[2019-03-22 12:28] LABS: MALB URINE SIEMENS 28.5 MG/L; MAU/CREAT RATIO 16.1 MCG/MG (0.0-30.0)
[2019-03-22 12:41] LABS: HEMOGLOBIN A1c 5.9 %
== END ==
LOC: M SFHCPLAZ 09:35
PROVIDERS: ATTEND Family Medicine
DX: E11.42 Type 2 diabetes mellitus with diabetic polyneuropathy (principal); I10 Essential (primary) hypertension; E03.9 Hypothyroidism, unspecified
CPT/HCPCS: 36415; 80048; 80061; 82043; 83036; 84439; 84443; G0463

== ENCOUNTER → 2019-03-24 | Outpatient (CLI) | payer MEDICARE, MEDICAID ==
[~2019-03-24] MED LIST changes: +MONT10TA2 PO; -MONT10TA4 PO
[2019-03-24 18:01] LABS: BASO % 0.3 % (0.0-1.0); EOS # 0.3 10^3/uL (0.0-0.5); EOS % 2.3 % (0.0-3.0); HEMATOCRIT 40.7 % (36.0-47.0); LYMPH # 3.6 10^3/uL (1.5-5.0); LYMPH % 29.1 % (24.0-44.0); MEAN CORPUSCULAR HEMOGLOBIN 30.2 pg (27.0-33.0); MEAN CORPUSCULAR HGB CONC 31.9 g/dl (32.0-36.5); MEAN CORPUSCULAR VOLUME 94.7 fl (80.0-96.0); MONO # 0.9 10^3/uL (0.0-0.8); MONO % 7.3 % (0.0-5.0); NEUTROPHILS # 7.6 10^3/uL (1.5-8.5); NEUTROPHILS % 60.6 % (36.0-66.0); PLATELET COUNT, AUTOMATED 264 10^3/uL (150-450); WHITE BLOOD COUNT 12.5 10^3/uL (4.0-10.0)
[2019-03-24 18:11] LABS: ALBUMIN 3.7 GM/DL (3.2-5.2); ALT/SGPT 31 U/L (12-78); BILIRUBIN,TOTAL 0.8 MG/DL (0.2-1.0); BLOOD UREA NITROGEN 12 MG/DL (7-18); CALCIUM LEVEL 9.5 MG/DL (8.8-10.2); CARBON DIOXIDE LEVEL 25 MEQ/L (21-32); CHLORIDE LEVEL 110 MEQ/L (98-107); CREATININE FOR GFR 0.88 MG/DL (0.55-1.30); GLOMERULAR FILTRATION RATE > 60.0 (>45); GLUCOSE, FASTING 77 MG/DL (70-100); POTASSIUM SERUM 4.2 MEQ/L (3.5-5.1); SODIUM LEVEL 142 MEQ/L (136-145); TOTAL PROTEIN 6.6 GM/DL (6.4-8.2)
[2019-03-24 18:16] LABS: TOTAL 25(OH) VITAMIN D 24.1 NG/ML (30.0-100.0)
[2019-03-24 18:17] LABS: PTH INTACT 115.4 PG/ML (18.5-88.0)
== END ==
LOC: M PLALAB 14:19
PROVIDERS: ATTEND Student in an Organized Health Care Education/Training Program
DX: E83.51 Hypocalcemia (principal)

== ENCOUNTER → 2019-07-13 | Outpatient (CLI) | payer MEDICARE, MEDICAID ==
[~2019-07-13] MED LIST changes: -MONT10TA2 PO; +MONT10TA4 PO
[2019-07-13 11:01] LABS: BASO % 0.5 % (0.0-1.0); EOS # 0.3 10^3/uL (0.0-0.5); EOS % 3.5 % (0.0-3.0); HEMATOCRIT 40.8 % (36.0-47.0); HEMOGLOBIN 13.2 g/dl (12.0-15.5); LYMPH # 2.7 10^3/uL (1.5-5.0); LYMPH % 31.7 % (24.0-44.0); MEAN CORPUSCULAR HEMOGLOBIN 28.8 pg (27.0-33.0); MEAN CORPUSCULAR HGB CONC 32.4 g/dl (32.0-36.5); MEAN CORPUSCULAR VOLUME 89.1 fl (80.0-96.0); MONO # 0.6 10^3/uL (0.0-0.8); MONO % 7.1 % (0.0-5.0); NEUTROPHILS # 4.9 10^3/uL (1.5-8.5); NEUTROPHILS % 56.9 % (36.0-66.0); PLATELET COUNT, AUTOMATED 229 10^3/uL (150-450); RED BLOOD COUNT 4.58 10^6/uL (4.00-5.40); WHITE BLOOD COUNT 8.6 10^3/uL (4.0-10.0)
[2019-07-13 11:20] LABS: HEMOGLOBIN A1c 5.9 %
[2019-07-13 13:21] LABS: ALBUMIN 3.6 GM/DL (3.2-5.2); ALT/SGPT 34 U/L (12-78); BILIRUBIN,TOTAL 1.8 MG/DL (0.2-1.0); BLOOD UREA NITROGEN 15 MG/DL (7-18); CALCIUM LEVEL 9.5 MG/DL (8.8-10.2); CARBON DIOXIDE LEVEL 27 MEQ/L (21-32); CHLORIDE LEVEL 107 MEQ/L (98-107); CHOLESTEROL LEVEL 131 MG/DL (<200); CHOLESTEROL RISK RATIO 3.447 (<5); CREATININE FOR GFR 0.84 MG/DL (0.55-1.30); FREE T4 1.31 NG/DL (0.76-1.46); GLOMERULAR FILTRATION RATE > 60.0 (>45); GLUCOSE, FASTING 112 MG/DL (70-100); HDL CHOLESTEROL 38 MG/DL (>40); LDL CHOLESTEROL 33 MG/DL (<100); NON-HDL-C 93 MG/DL; POTASSIUM SERUM 4.3 MEQ/L (3.5-5.1); SODIUM LEVEL 140 MEQ/L (136-145); TOTAL PROTEIN 6.8 GM/DL (6.4-8.2); TRIGLYCERIDES LEVEL 300 MG/DL (<150)
== END ==
LOC: M LAB 10:41
PROVIDERS: ATTEND Nurse Practitioner Psychiatric/Mental Health
DX: F31.89 Other bipolar disorder (principal); Z79.899 Other long term (current) drug therapy

== ENCOUNTER → 2019-07-14 | Outpatient (REF) | payer MEDICARE, MEDICAID | LOC: M SFHCPLAZ 14:55 | DX: R17 Unspecified jaundice (principal) ==

== ENCOUNTER → 2019-09-13 | Outpatient (CLI) | payer MEDICARE, MEDICAID ==
[~2019-09-13] MED LIST changes: +AMLO1TAB24 PO; -AMLO5TAB6 PO
--- NOTE | 2019-09-13 16:03 | REPVR ---
PROCEDURE INFORMATION: Exam: MR Angiogram Head Without Contrast, Arteries Exam date and time: 09/13/2019 10:14 AM Age: 64 years old Clinical indication: Condition or disease; Aneurysm, cerebral TECHNIQUE: Imaging protocol: MR angiogram head without contrast. Exam focused on the arteries. 3D rendering: MIP and/or 3D reconstructed images were created by the technologist. COMPARISON: CT Head without contrast 04/04/2018 9:24 AM FINDINGS: Anterior cerebral arteries: Intracranial segment is patent with no significant stenosis. No aneurysm. Right internal carotid artery: Posterior right suprasellar internal carotid artery aneurysm in the expected location of the posterior communicating artery infundibulum measuring 3.6 x 2.3 x 1.7 mm (series 204, image 1, frame 11; series 207, image 1, frame 5). The posterior communicating artery is not, however, identified (likely absent, normal variant), making this more likely a saccular aneurysm than a dilated infundibulum. No evidence of rupture. Right middle cerebral artery: No occlusion or significant stenosis. No aneurysm. Right posterior cerebral artery: See "Right internal carotid artery" finding. Right vertebral artery: No occlusion or significant stenosis. No aneurysm. Left internal carotid artery: Intracranial segment is patent with no significant stenosis. No aneurysm. Left middle cerebral artery: No occlusion or significant stenosis. No aneurysm. Left posterior cerebral artery: No occlusion or significant stenosis. No aneurysm. Left vertebral artery: No occlusion or significant stenosis. No aneurysm. Basilar artery: No occlusion or significant stenosis. No aneurysm. IMPRESSION: Posterior suprasellar suprasellar ICA saccular aneurysm. Electronically signed by: Michael Harrell On 09/13/2019 16:02:47 PM
== END ==
LOC: M RAD 09:21
PROVIDERS: ATTEND Neurological Surgery
DX: I67.1 Cerebral aneurysm, nonruptured (principal)